=== PATIENT | male | born 1960 | race Caucasian/White ===

== ENCOUNTER 2017-01-16 19:32 | Emergency (ER) | payer BC ==
[2017-01-16 19:44] VITALS: BP 114/75
--- NOTE | 2017-01-16 19:57 | UC ---
Skin Complaint HPI - History of Current Complaint Chief Complaint: UCSkin Time Seen by Provider: 01/16/17 19:46 Stated Complaint: TICK - Allergy/Home Medications Allergies/Adverse Reactions: Allergies Allergy/AdvReac Type Severity Reaction Status Date / Time Erythromycin AdvReac Mild Diarrhea Verified 01/16/17 19:44 Review of Systems Skin: Other - tick bite Is Patient Immunocompromised?: No All Other Systems Reviewed And Are Negative: Yes PMH/Surg Hx/FS Hx/Imm Hx Endocrine History: Dyslipidemia GI/ History: Gastroesophageal Reflux Neurological History: Other Other Neurological History: Meniere's disease - Surgical History Surgical History: None - Family History Known Family History: Positive: Cardiac Disease Negative: Hypertension, Diabetes - Social History Occupation: Employed Full-time Lives: With Family Alcohol Use: Daily Alcohol Amount: wine Substance Use Type: None Smoking Status (MU): Never Smoked Tobacco Physical Exam Triage Information Reviewed: Yes Appearance: Well-Appearing, No Pain Distress, Well-Nourished Vital Signs: Initial Vital Signs Temp 97.4 F 01/16/17 19:39 Pulse 63 01/16/17 19:39 Resp 14 01/16/17 19:39 BP 114/75 01/16/17 19:39 Vital Signs Reviewed: Yes Eyes: Positive: Conjunctiva Clear Neck exam: Normal Respiratory Exam: Normal Cardiovascular Exam: Normal Musculoskeletal Exam: Normal Neurological Exam: Normal Psychological Exam: Normal Skin: Positive: Other - tick bite posterior right shoulder. Course/Dx - Differential Diagnoses - Skin Complaint Differential Diagnoses: Cellulitis, Contact Dermatitis, Tick Born Illness - Diagnoses Provider Diagnoses: Tick bite right posterior shoulder Discharge - Discharge Plan Condition: Stable Disposition: HOME Patient Education Materials: Tick Bite (ED) Additional Instructions: Non-engorged tick that has been embedded for less than 24 hours does not require antibiotics.
== END 2017-01-16 20:08 | disposition home or self-care (01) ==
LOC: UCCORT 19:32
DX: S40.261A Insect bite (nonvenomous) of right shoulder, initial encounter (principal); W57.XXXA Bitten or stung by nonvenomous insect and other nonvenomous arthropods, initial encounter; Z88.1 Allergy status to other antibiotic agents
CPT/HCPCS: 99211; G0463

== ENCOUNTER 2017-05-30 16:38 | Emergency (ER) | payer BC ==
[2017-05-30 18:33] VITALS: BP 106/84
--- NOTE | 2017-05-30 18:55 | RAD ---
INDICATION: Fever. COMPARISON: There are no prior studies available for comparison. TECHNIQUE: Dual-energy PA and lateral views of the chest were obtained. FINDINGS: The heart is within normal limits in size. Mediastinal and hilar contours appear within normal limits. The lungs are clear. No pleural effusion is present. IMPRESSION: NO EVIDENCE FOR ACTIVE CARDIOPULMONARY DISEASE.
--- NOTE | 2017-05-30 19:03 | UC ---
HPI Febrile Illness - HPI Summary HPI Summary: 56 yo male with the onset yesterday of fever/chills/MACIEL and myalgias nausea no vomiting 2 weeks ago was quite ill with cough and fever no cough now no runny nose no sore throat - History of Current Complaint Chief Complaint: UCGeneralIllness Time Seen by Provider: 05/30/17 18:24 Hx Obtained From: Patient Timing: Constant Initial Severity: Moderate Current Severity: Mild Pain Intensity: 4 Pain Scale Used: 0-10 Numeric Alleviating Factors: OTC Medicine Associated Signs and Symptoms: Chills, Headache, Nausea Related History: Recent Tick Bite - tick bite about 4 mos ago - Allergy/Home Medications Allergies/Adverse Reactions: Allergies Allergy/AdvReac Type Severity Reaction Status Date / Time erythromycin base AdvReac Diarrhea Verified 05/30/17 18:18 Home Medications: Home Medications Acetaminophen [Tylenol Extra Strength] 1,000 mg PO DAILY PRN 05/30/17 [History Confirmed 05/30/17] Dexlansoprazole (NF) [Dexilant (NF)] 30 mg PO DAILY 05/30/17 [History Confirmed 05/30/17] Multivitamin [Daily Multiple Vitamins] 1 tab PO DAILY 05/30/17 [History Confirmed 05/30/17] hydroCHLOROthiazide [Hydrochlorothiazide] 0.5 tab PO DAILY 05/30/17 [History Confirmed 05/30/17] PMH/Surg Hx/FS Hx/Imm Hx Previously Healthy: Yes - Surgical History Surgical History: None - Family History Known Family History: Positive: Cardiac Disease Negative: Hypertension, Diabetes - Social History Alcohol Use: Occasionally Alcohol Amount: wine Substance Use Type: None Smoking Status (MU): Former Smoker When Did the Patient Quit Smoking/Using Tobacco: 33 YRS AGO Review of Systems Constitutional: Fever, Chills, Fatigue Skin: Negative Eyes: Negative ENT: Negative Respiratory: Negative Cardiovascular: Negative Gastrointestinal: Negative Genitourinary: Negative Motor: Negative Neurovascular: Negative Musculoskeletal: Myalgia Neurological: Headache Psychological: Negative Is Patient Immunocompromised?: No All Other Systems Reviewed And Are Negative: Yes Physical Exam Triage Information Reviewed: Yes Appearance: Well-Appearing, No Pain Distress, Well-Nourished Vital Signs: Initial Vital Signs Temp 98.1 F 05/30/17 18:24 Pulse 79 05/30/17 18:24 Resp 16 05/30/17 18:24 BP 106/84 03/12/18 18:24 Pulse Ox 96 05/30/17 18:24 Vital Signs Reviewed: Yes Eyes: Positive: Conjunctiva Clear ENT: Positive: Hearing grossly normal, Pharynx normal, TMs normal, Uvula midline. Negative: Nasal congestion, Nasal drainage, Tonsillar swelling, Tonsillar exudate, Trismus, Muffled voice, Hoarse voice, Dental tenderness, Sinus tenderness Dental Exam: Normal Neck: Positive: Supple, Nontender, No Lymphadenopathy Respiratory: Positive: Lungs clear, Normal breath sounds, No respiratory distress, No accessory muscle use Cardiovascular: Positive: RRR, No Murmur. Negative: Tachycardia, Bradycardia Abdomen Description: Positive: Nontender, No Organomegaly, Soft. Negative: Bruit, CVA Tenderness (R), CVA Tenderness (L) Bowel Sounds: Positive: Present Musculoskeletal: Positive: ROM Intact, No Edema Neurological: Positive: Alert, Muscle Tone Normal Psychological Exam: Normal Skin Exam: Normal Diagnostics - Laboratory Diagnostic Studies Completed/Ordered: influenza (-) - Radiology No standard instances Xray Interpretation: No Acute Changes Radiology Interpretation Completed By: Radiologist - cxr Course/Dx - Diagnoses Clinic Provider Diagnoses: Febrile illness of uncertain cause. suspect viral syndrome. r/o Lyme disease Discharge - Discharge Plan Condition: Stable Disposition: HOME Patient Education Materials: Viral Syndrome (ED) Referrals: Monika Redmond MD [Primary Care Provider] - 4 Days (if not better ) Additional Instructions: a blood test is pending for Lyme disease and a blood count RECHECK FOR NEW OR WORSENING SYMPTOMS rest fluids tylenol or advil
[2017-05-31 11:03] LABS: ABS Basophils 0 10^3/ul (0-0.2); ABS Eosinophils 0 10^3/ul (0-0.6); ABS Lymphocytes 0.8 10^3/ul (1.0-4.8); ABS Monocytes 0.3 10^3/ul (0-0.8); ABS Neutrophils 5.1 10^3/ul (1.5-7.7); ABS Nucleated RBC 0 10^3/ul; Eosinophil % 0.8 % (0-6); Hematocrit 44 % (42-52); Hemoglobin 15.2 g/dl (14.0-18.0); Lymphocyte % 12.5 % (25-47); Mean Corpuscular HGB Conc 35 g/dl (31-36); Mean Corpuscular Hemoglobin 30 pg (27-31); Mean Corpuscular Volume 87 fL (80-94); Mean Platelet Volume 8 um3 (7.4-10.4); Nucleated Red Blood Cells % 0.1; Platelet Count 164 10^3/ul (150-450); Red Blood Count 5.02 10^6/ul (4.0-5.4); Red Cell Distribution Width 14 % (10.5-15); White Blood Count 6.3 10^3/ul (3.5-10.8)
== END 2017-05-30 19:35 | disposition home or self-care (01) ==
LOC: UCCORT 16:38
DX: R50.9 Fever, unspecified (principal); R51 Headache; M79.1 Myalgia; R11.0 Nausea; R53.83 Other fatigue; Z88.1 Allergy status to other antibiotic agents; Z87.891 Personal history of nicotine dependence
CPT/HCPCS: 36415; 71046; 85025; 86618; 87502; 99211; G0463

== ENCOUNTER 2018-01-03 13:31 | Emergency (ER) | payer BC ==
--- OUTSIDE RECORDS SUMMARY | 2018-01-03 13:51 | XMS REPORT ---
:1960 External Reference #:[id number] Author Organization [facility] 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 Neck soft tissue US WNL July 2015. Abdominal US 2014. TSH WNL Apr 2016 Onset: 11/18/2014 Hyperlipidemia Alla Farooq PA-C Active Note: Oct 2015 LDL 113 HDL 43 chol 172 Trig 82 Onset: 11/18/2014 Gastroesophageal reflux disease Alla Farooq PA-C Active Note: upper endoscopy to D2 Bx 2012 Onset: 11/18/2014 Dysphagia Alla Farooq PA-C Active Note: Esophageal dysmotility syndrome Onset: 11/18/2014 Essential hypertension Alla Farooq PA-C Active Onset: 11/18/2014 Benign prostatic hyperplasia Alla Farooq PA-C Active Onset: 11/18/2014 Meniere's disease Alla Farooq PA-C Active Note: Has been on diuertic Onset: 02/09/2016 Gastroparesis syndrome Alla Farooq PA-C Active Note: Dr. Torres, GI Onset: 06/15/2017 Chest pain Monika Redmond MD Active Onset: 06/15/2017 Allergic rhinitis Monika Redmond MD Active Onset: 01/18/2017 Nonvenomous insect bite of scapular Lexa Murrell M.D. 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 [employer] Work Status Currently Working ETOH Use Uses Alcohol Daily 1-2 glasses of wine per night Smoking Patient denies history of smoking Recreational Drug Use Denies Drug Use Allergies, Adverse Reactions, Alerts Date Description Reaction Status Severity Comments 11/19/2014 Atorvastatin active Severe Myalgias 11/19/2014 Flu Virus Vaccine active Severe PMH- Guillan [place] 11/19/2014 Azithromycin Hives active Mild 11/19/2014 Tetracycline Hives active Mild 12/04/2015 Erythromycin Base active Thinks he got a rash years ago but not sure Medications Medication Date Status Form Strength Qnty SIG Indications Ordering Provider Pravastatin 12/06/ Active Tablets 20mg 90tabs 2 tab by E78.5 Gagen, Sodium 2017 mouth Araseli every day , MS, [employer], CNM Aspirin Low Dose / Active Tablets DR 81mg 1 tab po Unknown 0000 qd Chlorthalidone / Active Tablets 25mg 45tabs 1/2 tab Nyla, 0000 by mouth MD Monika every day Multi For Him / Active Tablets 1 by Unknown 50+ 0000 mouth every day Famotidine / Active Tablets 40mg 1 po Unknown 0000 daily prn Metoclopramide 12/02/ Hx Tablets 5mg 180tab 1 tablet K31.84 PASCUAL Zuleta 2016 - s by mouth Wade Lange 06/15/ qa three DO 2018 times a day prn Acetaminophen / Hx Tablets 500mg 2 by Unknown 0000 - mouth 03/28/ every 4-6 2018 hours as needed pain Dexilant / Hx Capsules 60mg 180cap [address] twice Wade Lange, daily DO 2017 Meclizine HCL / Hx Tablets 25mg one tab Unknown 0000 by mouth four times a day as needed vertigo Multi-Day / Hx Tablets 1 tab po Unknown 0000 qd Dexilant / Hx Capsules 30mg 1 by Unknown 0000 - DR mouth day 2017 Pravastatin / Hx Tablets 10mg 90tabs 1 by Saurav Simms 0000 - mouth Niko, day M.D. 2017 at at bedtime Immunizations CPT Code Status Date Vaccine Lot # [id number] Given 05/26/2011 Tetnus Injection [id number] Given 02/18/2002 Tetnus Injection 29314 Given Unknown Tdap injection [id number] Refused 12/06/2016 Influenza Virus Vaccine Quadrivalent Iiv4 Split Preser Free Id Vital Signs Date Vital Result Comment 12/20/2017 BP Systolic Sitting Left Arm 121 mmHg BP Diastolic Sitting Left Arm 78 mmHg Body Temperature 97.5 F Heart Rate 75 /min Respiratory Rate 20 /min Height 70 inches 5'10" Weight 145.00 lb BMI (Body Mass Index) 20.8 kg/m2 BSA (Body Surface Area) 1.82 m2 [place] body weight in kilograms 75 O2 % BldC Oximetry 96 % 06/15/2017 BP Systolic Sitting Right Arm 109 mmHg BP Diastolic Sitting Right Arm 80 mmHg Heart Rate 72 /min Respiratory Rate 12 /min Height 70 inches 5'10" Weight 143.00 lb BMI (Body Mass Index) 20.5 kg/m2 BSA (Body Surface Area) 1.81 m2 [place] body weight in kilograms 75 01/18/2017 BP Systolic 115 mmHg BP Diastolic 81 mmHg Body Temperature 95.5 F Heart Rate 70 /min Respiratory Rate 14 /min Height 70 inches 5'10" Weight 145.50 lb BMI (Body Mass Index) 20.9 kg/m2 BSA (Body Surface Area) 1.82 m2 [place] body weight in kilograms 75 O2 % BldC Oximetry 99 % 12/06/2016 BP Systolic 132 mmHg BP Diastolic 85 mmHg Heart Rate 76 /min Respiratory Rate 16 /min Height 70 inches 5'10" Weight 145.12 lb BMI (Body Mass Index) 20.8 kg/m2 BSA (Body Surface Area) 1.82 m2 [place] body weight in kilograms 75 O2 % BldC Oximetry 96 % 05/20/2016 BP Systolic 108 mmHg BP Diastolic 76 mmHg Heart Rate 60 /min Height 70 inches 5'10" Weight 148.00 lb BMI (Body Mass Index) 21.2 kg/m2 BSA (Body Surface Area) 1.84 m2 12/03/2015 BP Systolic 111 mmHg BP Diastolic 77 mmHg Heart Rate 60 /min Height 70 inches 5'10" Weight 142.00 lb BMI (Body Mass Index) 20.4 kg/m2 BSA (Body Surface Area) 1.80 m2 11/13/2015 BP Systolic 121 mmHg BP Diastolic 79 mmHg Heart Rate 76 /min Height 70 inches 5'10" Weight 143.00 lb BMI (Body Mass Index) 20.5 kg/m2 BSA (Body Surface Area) 1.81 m2 07/14/2015 BP Systolic 127 mmHg BP Diastolic 85 mmHg Heart Rate 65 /min Height 70 inches 5'10" Weight 145.00 lb BMI (Body Mass Index) 20.8 kg/m2 BSA (Body Surface Area) 1.82 m2 03/11/2015 BP Systolic 123 mmHg BP Diastolic 79 mmHg Heart Rate 65 /min Height 70 inches 5'10" Weight 144.00 lb BMI (Body Mass Index) 20.7 kg/m2 BSA (Body Surface Area) 1.82 m2 11/19/2014 BP Systolic 126 mmHg BP Diastolic 70 mmHg Heart Rate 68 /min Height 70 inches 5'10" Weight 138.00 lb BMI (Body Mass Index) 19.8 kg/m2 BSA (Body Surface Area) 1.78 m2 Results Test Date Test Result H/L Range Note Comprehensive Metabolic Panel 12/12/2017 Glucose 106 mg/dL 74-106 1 BUN 35 mg/dL High 7-18 1 Creatinine 0.9 mg/dL 0.6-1.3 1 Glom Filtration Rate, Estimate >60 mL/min >60 1 If >60 mL/min >60 1, 2 BUN/Creat 38.8 ratio 1 Sodium 144 mmol/L 136-145 1 Potassium 4.0 mmol/L 3.5-5.1 1 Chloride 107 mmol/L 98-107 1 Carbon Dioxide 32 mmol/L 21-32 1 Anion Gap 5 mEq/L Low 8-16 1 Calcium 9.0 mg/dL 8.5-10.1 1 Total Protein 7.5 g/dL 6.4-8.2 1 Albumin 4.1 g/dL 3.4-5.0 1 Globulin 3.4 g/dL 1.9-4.3 1 Alb/Glob 1.2 ratio 1 Bilirubin,Total 0.5 mg/dL 0.2-1.0 1 Sgot/Ast 34 U/L 15-37 1 SGPT/Alt 44 U/L 12-78 1 Alkaline Phosphatase 68 U/L 45-117 1 LDL Cholesterol Profile 12/12/2017 Cholesterol 189 mg/dL <200 1, 3 Triglycerides 76 mg/dL <150 1, 4 HDL Cholesterol 56 mg/dL >40 1, 5 LDL-Cholesterol 118 mg/dL < 100 1, 6 Potassium SerPl-sCnc 06/06/2017 Potassium SerPl-sCnc 4.0 3.5-5.1 RDW RBC Auto 06/06/2017 RDW RBC Auto 43.4 36-51 RDW RBC Auto-Rto 06/06/2017 RDW RBC Auto-Rto 13.7 11.6-15.8 Serum carbon dioxide 06/06/2017 Serum carbon dioxide 32 21-32 measurement measurement Serum or plasma 06/06/2017 Serum or plasma 3.8 3.4-5.0 albumin measurement albumin measurement (mass/volume) (mass/volume) Serum or plasma 06/06/2017 Serum or plasma 86 45-117 alkaline phosphatase alkaline phosphatase measurement ( measurement (enzymatic activity/volume) Serum or plasma 06/06/2017 Serum or plasma 63 High 15-37 aspartate aspartate aminotransferase aminotransferase measure measurement (enzymatic activity/volume) Serum or plasma 06/06/2017 Serum or plasma 9.1 8.5-10.1 calcium measurement calcium measurement (mass/volume) (mass/volume) Serum or plasma 06/06/2017 Serum or plasma 42 >40 cholesterol in HDL cholesterol in HDL measurement (ma measurement (mass/volume) Serum or plasma 06/06/2017 Serum or plasma 89 < 100 cholesterol in LDL cholesterol in LDL measurement by measurement by calculation (mass/volume) Serum or plasma 06/06/2017 Serum or plasma 158 <200 cholesterol cholesterol measurement (mass/volu measurement (mass/volume) Serum or plasma 06/06/2017 Serum or plasma 1.0 0.6-1.3 creatinine measurement creatinine measurement (mass/volum (mass/volume) Serum or plasma 06/06/2017 Serum or plasma 103 74-106 glucose measurement glucose measurement (mass/volume) (mass/volume) Serum or plasma 06/06/2017 Serum or plasma 7.3 6.4-8.2 protein measurement protein measurement (mass/volume) (mass/volume) Serum or plasma total 06/06/2017 Serum or plasma total 0.3 0.2-1.0 bilirubin measurement bilirubin measurement (mass/ (mass/volume) Serum or plasma 06/06/2017 Serum or plasma 136 <150 triglyceride triglyceride measurement (mass/vol measurement (mass/volume) Serum or plasma urea 06/06/2017 Serum or plasma urea 27 High 7-18 nitrogen measurement nitrogen measurement (mass/vo (mass/volume) Serum sodium 06/06/2017 Serum sodium 139 136-145 measurement measurement Unloinc 06/06/2017 Unloinc See Note 7 Alt SerPl-cCnc 06/06/2017 Alt SerPl-cCnc 71 12-78 Laboratory test 06/06/2017 Slide Review (SEE NOTE) 8, 9 finding CBS W/Automated Diff 06/06/2017 White Blood Count 6.8 K/uL 3.4-10.5 8 Red Blood Count 4.63 M/uL 4.20-5.80 8 Hemoglobin 14.1 gm/dL 12.8-17.0 8 Hematocrit 41.0 % 38.0-48.0 8 Mean Cell Volume 88.6 fl 80.0-96.0 8 Mean Corpuscular HGB 30.5 pg 27.0-33.0 8 Mean Corpuscular HGB Conc 34.4 g/dL 31.7-36.0 8 Platelet Count 266 K/uL 155-360 8 Red Cell Distri Width SD 43.4 fl 36-51 8 Red Cell Distri Width %CV 13.7 % 11.6-15.8 8 Mean Platelet Volume 10.2 fL 6.6-10.6 8 Neut% 67.0 % 33.0-73.0 8 Lymph % 21.8 % 20.0-42.0 8 Saline % 6.4 % 0.0-10.0 8 Eo% 4.5 % 0.0-6.6 8 Bas% 0.3 % 0.0-1.1 8 Neut# 4.57 K/uL 1.8-7.0 8 Lymph # 1.49 K/uL 1.0-4.0 8 Saline # 0.44 K/uL 0.0-0.8 8 Eos # 0.31 K/uL 0.0-0.5 8 Baso # 0.02 K/uL 0.0-0.1 8 Comprehensive Metabolic Panel 06/06/2017 Glucose 103 mg/dL 74-106 8 BUN 27 mg/dL High 7-18 8 Creatinine 1.0 mg/dL 0.6-1.3 8 Glom Filtration Rate, Estimate >60 mL/min >60 8 If >60 mL/min >60 8, 10 BUN/Creat 27.0 ratio 8 Sodium 139 mmol/L 136-145 8 Potassium 4.0 mmol/L 3.5-5.1 8 Chloride 103 mmol/L 98-107 8 Carbon Dioxide 32 mmol/L 21-32 8 Anion Gap 4 mEq/L Low 8-16 8 Calcium 9.1 mg/dL 8.5-10.1 8 Total Protein 7.3 g/dL 6.4-8.2 8 Albumin 3.8 g/dL 3.4-5.0 8 Globulin 3.5 g/dL 1.9-4.3 8 Alb/Glob 1.1 ratio 8 Bilirubin,Total 0.3 mg/dL 0.2-1.0 8 Sgot/Ast 63 U/L High 15-37 8 SGPT/Alt 71 U/L 12-78 8 Alkaline Phosphatase 86 U/L 45-117 8 LDL Cholesterol Profile 06/06/2017 Cholesterol 158 mg/dL <200 8, 11 Triglycerides 136 mg/dL <150 8, 12 HDL Cholesterol 42 mg/dL >40 8, 13 LDL-Cholesterol 89 mg/dL < 100 8, 14 Albumin/Glob SerPl 06/06/2017 Albumin/Glob SerPl 1.1 Anion Gap SerPl-sCnc 06/06/2017 Anion Gap SerPl-sCnc 4 Low 8-16 Automated blood 06/06/2017 Automated blood 0.02 0.0-0.1 basophil count basophil count (count/volume) (count/volume) Automated blood 06/06/2017 Automated blood 0.31 0.0-0.5 eosinophil count eosinophil count Automated blood 06/06/2017 Automated blood 41.0 38.0-48.0 hematocrit (volume hematocrit (volume fraction) fraction) Automated blood 06/06/2017 Automated blood 1.49 1.0-4.0 lymphocyte count lymphocyte count (number/volume) (number/volume) Automated blood 06/06/2017 Automated blood 266 155-360 platelet count platelet count Automated blood 06/06/2017 Automated blood 10.2 6.6-10.6 platelet mean volume platelet mean volume measurement measurement Automated erythrocyte 06/06/2017 Automated erythrocyte 30.5 27.0-33.0 mean corpuscular mean corpuscular hemoglobin hemoglobin (mass per erythrocyte) Automated erythrocyte 06/06/2017 Automated erythrocyte 34.4 31.7-36.0 mean corpuscular mean corpuscular hemoglobin hemoglobin concentration measurement (mass/volume) Automated erythrocyte 06/06/2017 Automated erythrocyte 88.6 80.0-96.0 mean corpuscular volume mean corpuscular volume BUN/Creat SerPl 06/06/2017 BUN/Creat SerPl 27.0 Neutrophils/leuk NFr 06/06/2017 Neutrophils/leuk NFr 67.0 33.0-73.0 Bld Auto Bld Auto Neutrophils # Bld Auto 06/06/2017 Neutrophils # Bld Auto 4.57 1.8-7.0 Monocytes/leuk NFr Bld 06/06/2017 Monocytes/leuk NFr Bld 6.4 0.0-10.0 Auto Auto Lymphocytes/leuk NFr 06/06/2017 Lymphocytes/leuk NFr 21.8 20.0-42.0 Bld Auto Bld Auto Globulin Ser Calc-mCnc 06/06/2017 Globulin Ser Calc-mCnc 3.5 1.9-4.3 Eosinophil/leuk NFr Bld 06/06/2017 Eosinophil/leuk NFr Bld 4.5 0.0-6.6 Auto Auto Basophils/leuk NFr Bld 06/06/2017 Basophils/leuk NFr Bld 0.3 0.0-1.1 Auto Auto Blood erythrocytes 06/06/2017 Blood erythrocytes 4.63 4.20-5.80 automated count automated count (number/volume) (number/volume) Blood hemoglobin 06/06/2017 Blood hemoglobin 14.1 12.8-17.0 measurement measurement (mass/volume) (mass/volume) Blood leukocytes 06/06/2017 Blood leukocytes 6.8 3.4-10.5 automated count automated count (number/volume) (number/volume) Blood monocytes 06/06/2017 Blood monocytes 0.44 0.0-0.8 automated count automated count (number/volume) (number/volume) [facility] 06/06[facility]2017 Ch[facility]ide [facility] 103 98-107 CBC Auto Diff 05/30/2017 White Blood Count 6.3 10^3/uL 3.5-10.8 Red Blood Count 5.02 10^6/uL 4.0-5.4 Hemoglobin 15.2 g/dL 14.0-18.0 Hematocrit 44 % 42-52 Mean Corpuscular Volume 87 fL 80-94 Mean Corpuscular Hemoglobin 30 pg 27-31 Mean Corpuscular HGB Conc 35 g/dL 31-36 Red Cell Distribution Width 14 % 10.5-15 Platelet Count 164 10^3/uL 150-450 Mean Platelet Volume 8 um3 7.4-10.4 Abs Neutrophils 5.1 10^3/uL 1.5-7.7 Abs Lymphocytes 0.8 10^3/uL Low 1.0-4.8 Abs Monocytes 0.3 10^3/uL 0-0.8 Abs Eosinophils 0 10^3/uL 0-0.6 Abs Basophils 0 10^3/uL 0-0.2 Abs Nucleated RBC 0 10^3/uL Granulocyte % 80.9 % 38-83 Lymphocyte % 12.5 % Low 25-47 Monocyte % 5.4 % 0-7 Eosinophil % 0.8 % 0-6 Basophil % 0.4 % 0-2 Nucleated Red Blood Cells % 0.1 Laboratory test finding 05/30/2017 Lyme Disease Serology Negative Negative 15 Rapid Influenza A & B 05/30/2017 Influenza A Molecular NEGATIVE Negative 16 Molecular Influenza B Molecular NEGATIVE Negative 230 Ua Routine 04/21/2017 Ua Bilirubin Negative Ua Blood Negative Ua Clarity Clear Ua Color Yellow Ua Glucose Negative Ua Ketones Negative Ua Leuko Negative Ua Nitrite Negative Ua PH 6.5 1 5.0-7.5 Ua Protein Negative Ua Specific [place] <=1.005 1.003-1.030 Ua Urobilinogen 0.2 E.U./dL 0.0-1.0 Laboratory test finding 04/21/2017 Total Psa Only 0.36 ng/mL 0.00-4.00 Comprehensive Metabolic Panel 11/24/2016 Glucose 107 mg/dL High 74-106 17 BUN 23 mg/dL High 7-18 17 Creatinine 0.8 mg/dL 0.6-1.3 17 Glom Filtration Rate, Estimate >60 mL/min >60 17 If >60 mL/min >60 17, 18 BUN/Creat 28.7 ratio 17 Sodium 138 mmol/L 136-145 17 Potassium 4.8 mmol/L 3.5-5.1 17 Chloride 104 mmol/L 98-107 17 Carbon Dioxide 32 mmol/L 21-32 17 Anion Gap 2 mEq/L Low 8-16 17 Calcium 9.1 mg/dL 8.5-10.1 17 Total Protein 7.5 g/dL 6.4-8.2 17 Albumin 3.8 g/dL 3.4-5.0 17 Globulin 3.7 g/dL 1.9-4.3 17 Alb/Glob 1.0 ratio 17 Bilirubin,Total 0.5 mg/dL 0.2-1.0 17 Sgot/Ast 32 U/L 15-37 17 SGPT/Alt 37 U/L 12-78 17 Alkaline Phosphatase 68 U/L 45-117 17 Laboratory test finding 11/24/2016 Magnesium 2.1 mg/dL 1.8-2.4 17 LDL Cholesterol Profile 11/24/2016 Cholesterol 213 mg/dL High <200 17, 19 Triglycerides 86 mg/dL <150 17, 20 HDL Cholesterol 56 mg/dL >40 17, 21 LDL-Cholesterol 140 mg/dL < 100 17, 22 CBS W/Automated Diff 11/24/2016 White Blood Count 5.4 K/uL 3.4-10.5 17 Red Blood Count 4.70 M/uL 4.20-5.80 17 Hemoglobin 14.5 gm/dL 12.8-17.0 17 Hematocrit 42.0 % 38.0-48.0 17 Mean Cell Volume 89.4 fl 80.0-96.0 17 Mean Corpuscular HGB 30.9 pg 27.0-33.0 17 Mean Corpuscular HGB Conc 34.5 g/dL 31.7-36.0 17 Platelet Count 159 K/uL 150-400 17 Red Cell Distri Width SD 44.6 fl 36-51 17 Red Cell Distri Width %CV 14.0 % 11.6-15.8 17 Mean Platelet Volume 9.7 fL 6.6-10.6 17 Neut% 65.9 % 33.0-73.0 17 Lymph % 21.5 % 20.0-42.0 17 Saline % 7.4 % 0.0-10.0 17 Eo% 4.8 % 0.0-6.6 17 Bas% 0.4 % 0.0-1.1 17 Neut# 3.59 K/uL 1.8-7.0 17 Lymph # 1.17 K/uL 1.0-4.0 17 Saline # 0.40 K/uL 0.0-0.8 17 Eos # 0.26 K/uL 0.0-0.5 17 Baso # 0.02 K/uL 0.0-0.1 17 Vitamin B12 And Folate 11/24/2016 Vitamin B12 575 pg/mL 193-986 17 Folic Acid 20.8 ng/mL High 3.1-17.5 17 Laboratory test finding 11/24/2016 Ferritin 318 ng/mL 26-388 17 Laboratory test finding 05/13/2016 Magnesium 2.4 mg/dL 1.8-2.4 23 Thyroid Stim Hormone 2.83 uIU/mL 0.30-4.20 23 Comprehensive Metabolic Panel 05/13/2016 Glucose 103 mg/dL 74-106 23 BUN 25 mg/dL High 7-18 23 Creatinine 0.9 mg/dL 0.6-1.3 23 Glom Filtration Rate, Estimate >60 mL/min >60 23 If >60 mL/min >60 23, 24 BUN/Creat 27.7 ratio 23 Sodium 141 mmol/L 136-145 23 Potassium 4.1 mmol/L 3.5-5.1 23 Chloride 103 mmol/L 98-107 23 Carbon Dioxide 33 mmol/L High 21-32 23 Anion Gap 5 mEq/L Low 8-16 23 Calcium 8.8 mg/dL 8.5-10.1 23 Total Protein 7.1 g/dL 6.4-8.2 23 Albumin 4.0 g/dL 3.4-5.0 23 Globulin 3.1 g/dL 1.9-4.3 23 Alb/Glob 1.3 ratio 23 Bilirubin,Total 0.6 mg/dL 0.2-1.0 23 Sgot/Ast 27 U/L 15-37 23 SGPT/Alt 36 U/L 12-78 23 Alkaline Phosphatase 65 U/L 45-117 23 LDL Cholesterol Profile 11/10/2015 Cholesterol 172 mg/dL <200 25, 26 Triglycerides 82 mg/dL <150 25, 27 HDL Cholesterol 43 mg/dL >40 25, 28 LDL-Cholesterol 113 mg/dL < 100 25, 29 @[facility] Pat Id: [id number] 25 @[facility] Req #: [id number] 25 Is Patient Fasting? Fasting 25 Magnesium 11/10/2015 Magnesium 2.0 mg/dL 1.8-2.4 25 @[facility] Pat Id: [id number] 25 @[facility] Req #: [id number] 25 Is Patient Fasting? Fasting 25 Comprehensive Metabolic Panel 11/10/2015 Glucose 106 mg/dL 74-106 25 BUN 29 mg/dL High 7-18 25 Creatinine 0.9 mg/dL 0.6-1.3 25 Glom Filtration Rate, Estimate >60 mL/min >60 25 If >60 mL/min >60 25, 30 BUN/Creat 32.2 ratio 25 Sodium 141 mmol/L 136-145 25 Potassium 4.1 mmol/L 3.5-5.1 25 Chloride 106 mmol/L 98-107 25 Carbon Dioxide 31 mmol/L 21-32 25 Anion Gap 4 mEq/L Low 8-16 25 Calcium 9.0 mg/dL 8.5-10.1 25 Total Protein 7.2 g/dL 6.4-8.2 25 Albumin 3.8 g/dL 3.4-5.0 25 Globulin 3.4 g/dL 1.9-4.3 25 Alb/Glob 1.1 ratio 25 Bilirubin,Total 0.4 mg/dL 0.2-1.0 25 Sgot/Ast 26 U/L 15-37 25 SGPT/Alt 40 U/L 12-78 25 Alkaline Phosphatase 72 U/L 45-117 25 @[facility] Pat Id: [id number] 25 @[facility] Req #: [id number] 25 Is Patient Fasting? Fasting 25 CMP Panel (14 Test) 07/08/2015 Glucose 106 mg/dL 74-106 BUN 32 mg/dL High 7-18 Creatinine 1.0 mg/dL 0.6-1.3 Glom Filtration Rate, Estimate >60 mL/min >60 If >60 mL/min >60 31 BUN/Creat 32.0 ratio Sodium 141 mmol/L 136-145 Potassium 4.0 mmol/L 3.5-5.1 Chloride 105 mmol/L 98-107 Carbon Dioxide 32 mmol/L 21-32 Anion Gap 4 mEq/L Low 8-16 Calcium 9.6 mg/dL 8.5-10.1 Total Protein 7.7 g/dL 6.4-8.2 Albumin 4.2 g/dL 3.4-5.0 Globulin 3.5 g/dL 1.9-4.3 Alb/Glob 1.2 ratio Bilirubin,Total 0.6 mg/dL 0.2-1.0 Sgot/Ast 34 U/L 15-37 SGPT/Alt 41 U/L 12-78 Alkaline Phosphatase 74 U/L 45-117 CMP Panel (14 Test) 03/03/2015 Glucose 103 mg/dL 74-106 BUN 31 mg/dL High 7-18 Creatinine 0.9 mg/dL 0.6-1.3 Glom Filtration Rate, Estimate >60 mL/min >60 If >60 mL/min >60 32 BUN/Creat 34.4 ratio Sodium 142 mmol/L 136-145 Potassium 3.9 mmol/L 3.5-5.1 Chloride 105 mmol/L 98-107 Carbon Dioxide 31 mmol/L 21-32 Anion Gap 6 mEq/L Low 8-16 Calcium 9.3 mg/dL 8.5-10.1 Total Protein 7.3 g/dL 6.4-8.2 Albumin 4.3 g/dL 3.4-5.0 Globulin 3.0 g/dL 1.9-4.3 Alb/Glob 1.4 ratio Bilirubin,Total 0.6 mg/dL 0.2-1.0 Sgot/Ast 26 U/L 15-37 SGPT/Alt 33 U/L 12-78 Alkaline Phosphatase 86 U/L 45-117 Comprehensive Metabolic Panel 11/12/2014 Glucose 103 mg/dL 74-106 BUN 30 mg/dL High 7-18 Creatinine 1.0 mg/dL 0.6-1.3 Glom Filtration Rate, Estimate >60 mL/min >60 If >60 mL/min >60 33 BUN/Creat 30.0 ratio Sodium 136 mmol/L 136-145 Potassium 4.1 mmol/L 3.5-5.1 Chloride 100 mmol/L 98-107 Carbon Dioxide 31 mmol/L 21-32 Anion Gap 5 mEq/L Low 8-16 Calcium 9.5 mg/dL 8.5-10.1 Total Protein 8.3 g/dL High 6.4-8.2 Albumin 4.4 g/dL 3.4-5.0 Globulin 3.9 g/dL 1.9-4.3 Alb/Glob 1.1 ratio Bilirubin,Total 0.7 mg/dL 0.2-1.0 Sgot/Ast 33 U/L 15-37 SGPT/Alt 45 U/L 12-78 Alkaline Phosphatase 75 U/L 45-117 LDL Cholesterol Profile 11/12/2014 Cholesterol 195 mg/dL < 200 34 Triglycerides 76 mg/dL < 150 35 HDL Cholesterol 49 mg/dL > 40 36 LDL-Cholesterol 131 mg/dL < 100 37 1 E78.5 2 Note: Persistent reduction for 3 months or more in an eGFR <60 mL/min/1.73 m2 defines CKD. Patients with eGFR values >/=60 mL/min/1.73 m2 may also have CKD if evidence of persistent proteinuria is present. The original MDRD equation for estimated GFR is not valid for patients less than 18 years of age. Additional information may be found at www.kdoqi.org. 3 Reference Guidelines*: Desirable: ........... < 200 mg/dL Borderline High: ..... 200-239 mg/dL High: ................ >=240 mg/dL * The National Cholesterol Education Program (NCEP) 4 Reference Guidelines*: Normal: ............. < 150 mg/dL Borderline High: .... 150-199 mg/dL High: ............... 200-499 mg/dL Very High: .......... > 500 mg/dL * Source: National Cholesterol Education Program (NCEP) 5 Reference Guidelines*: Low HDL: ..... < 40 mg/dL Normal: ..... 40-60 mg/dL Desirable: ... > 60 mg/dL *The National Cholesterol Education Program(NCEP) 6 Reference Guidelines*: Optimal:........... <100 mg/dL Near Optimal....... 100-129 mg/dL Borderline High.... 130-159 mg/dL High............... 160-189 mg/dL Very High.......... >=190 mg/dL * Source: National Cholesterol Education Program (NCEP) 7 Instrument flagged sample for slide review. Less than 10% Bands seen, no other immature WBC's seen. RBC morphology essentially normal. Platelet estimate= Normal 8 I10 E78.5 G25.81 9 Instrument flagged sample for slide review. Less than 10% Bands seen, no other immature WBC's seen. RBC morphology essentially normal. Platelet estimate=NORMAL 10 Note: Persistent reduction for 3 months or more in an eGFR <60 mL/min/1.73 m2 defines CKD. Patients with eGFR values >/=60 mL/min/1.73 m2 may also have CKD if evidence of persistent proteinuria is present. The original MDRD equation for estimated GFR is not valid for patients less than 18 years of age. Additional information may be found at www.kdoqi.org. 11 Reference Guidelines*: Desirable: ........... < 200 mg/dL Borderline High: ..... 200-239 mg/dL High: ................ >=240 mg/dL * The National Cholesterol Education Program (NCEP) 12 Reference Guidelines*: Normal: ............. < 150 mg/dL Borderline High: .... 150-199 mg/dL High: ............... 200-499 mg/dL Very High: .......... > 500 mg/dL * Source: National Cholesterol Education Program (NCEP) 13 Reference Guidelines*: Low HDL: ..... < 40 mg/dL Normal: ..... 40-60 mg/dL Desirable: ... > 60 mg/dL *The National Cholesterol Education Program(NCEP) 14 Reference Guidelines*: Optimal:........... <100 mg/dL Near Optimal....... 100-129 mg/dL Borderline High.... 130-159 mg/dL High............... 160-189 mg/dL Very High.......... >=190 mg/dL * Source: National Cholesterol Education Program (NCEP) 15 Serologic response to B. burgdorferi infection is not detected, but cannot rule out early infection during which low or undetectable antibody levels to B. burgdorferi may be present. If clinically indicated, a new serum specimen should be submitted in 7-14 days. Test Performed by: [facility] [address], [place] [address] 16 Health Education Director: [id number] E78.5 R63.4 I10 K31.84 G25.81 K21.9 18 Note: Persistent reduction for 3 months or more in an eGFR <60 mL/min/1.73 m2 defines CKD. Patients with eGFR values >/=60 mL/min/1.73 m2 may also have CKD if evidence of persistent proteinuria is present. The original MDRD equation for estimated GFR is not valid for patients less than 18 years of age. Additional information may be found at [email or web address]. 19 Reference Guidelines*: Desirable: ........... < 200 mg/dL Borderline High: ..... 200-239 mg/dL High: ................ >=240 mg/dL * The National Cholesterol Education Program (NCEP) 20 Reference Guidelines*: Normal: ............. < 150 mg/dL Borderline High: .... 150-199 mg/dL High: ............... 200-499 mg/dL Very High: .......... > 500 mg/dL * Source: National Cholesterol Education Program (NCEP) 21 Reference Guidelines*: Low HDL: ..... < 40 mg/dL Normal: ..... 40-60 mg/dL Desirable: ... > 60 mg/dL *The National Cholesterol Education Program(NCEP) 22 Reference Guidelines*: Optimal:........... <100 mg/dL Near Optimal....... 100-129 mg/dL Borderline High.... 130-159 mg/dL High............... 160-189 mg/dL Very High.......... >=190 mg/dL * Source: National Cholesterol Education Program (NCEP) 23 K21.9 E78.5 R10.9 R63.4 K31.84 24 Note: Persistent reduction for 3 months or more in an eGFR <60 mL/min/1.73 m2 defines CKD. Patients with eGFR values >/=60 mL/min/1.73 m2 may also have CKD if evidence of persistent proteinuria is present. The original MDRD equation for estimated GFR is not valid for patients less than 18 years of age. Additional information may be found at [email or web address]. 25 I10 E78.5 K21.9 26 Reference Guidelines*: Desirable: ........... < 200 mg/dL Borderline High: ..... 200-239 mg/dL High: ................ >=240 mg/dL * The National Cholesterol Education Program (NCEP) 27 Reference Guidelines*: Normal: ............. < 150 mg/dL Borderline High: .... 150-199 mg/dL High: ............... 200-499 mg/dL Very High: .......... > 500 mg/dL * Source: National Cholesterol Education Program (NCEP) 28 Reference Guidelines*: Low HDL: ..... < 40 mg/dL Normal: ..... 40-60 mg/dL Desirable: ... > 60 mg/dL *The National Cholesterol Education Program(NCEP) 29 Reference Guidelines*: Optimal:........... <100 mg/dL Near Optimal....... 100-129 mg/dL Borderline High.... 130-159 mg/dL High............... 160-189 mg/dL Very High.......... >=190 mg/dL * Source: National Cholesterol Education Program (NCEP) 30 Note: Persistent reduction for 3 months or more in an eGFR <60 mL/min/1.73 m2 defines CKD. Patients with eGFR values >/=60 mL/min/1.73 m2 may also have CKD if evidence of persistent proteinuria is present. The original MDRD equation for estimated GFR is not valid for patients less than 18 years of age. Additional information may be found at [email or web address]. 31 Note: Persistent reduction for 3 months or more in an eGFR <60 mL/min/1.73 m2 defines CKD. Patients with eGFR values >/=60 mL/min/1.73 m2 may also have CKD if evidence of persistent proteinuria is present. The original MDRD equation for estimated GFR is not valid for patients less than 18 years of age. Additional information may be found at [email or web address]. 32 Note: Persistent reduction for 3 months or more in an eGFR <60 mL/min/1.73 m2 defines CKD. Patients with eGFR values >/=60 mL/min/1.73 m2 may also have CKD if evidence of persistent proteinuria is present. The original MDRD equation for estimated GFR is not valid for patients less than 18 years of age. Additional information may be found at [email or web address]. 33 Note: Persistent reduction for 3 months or more in an eGFR <60 mL/min/1.73 m2 defines CKD. Patients with eGFR values >/=60 mL/min/1.73 m2 may also have CKD if evidence of persistent proteinuria is present. The original MDRD equation for estimated GFR is not valid for patients less than 18 years of age. Additional information may be found at [email or web address]. 34 Reference Guidelines*: Desirable: ........... < 200 mg/dL Borderline High: ..... 200-239 mg/dL High: ................ >=240 mg/dL * The National Cholesterol Education Program (NCEP) 35 Reference Guidelines*: Normal: ............. < 150 mg/dL Borderline High: .... 150-199 mg/dL High: ............... 200-499 mg/dL Very High: .......... > 500 mg/dL * Source: National Cholesterol Education Program (NCEP) 36 Reference Guidelines*: Low HDL: ..... < 40 mg/dL Normal: ..... 40-60 mg/dL Desirable: ... > 60 mg/dL *The National Cholesterol Education Program(NCEP) 37 Reference Guidelines*: Optimal:........... <100 mg/dL Near Optimal....... 100-129 mg/dL Borderline High.... 130-159 mg/dL High............... 160-189 mg/dL Very High.......... >=190 mg/dL * Source: National Cholesterol Education Program (NCEP) Procedures Date CPT Code Description Status 06/22/2017 43550 Stress Test Interpre And Report Only Completed 06/22/2017 44006 Stress Test Physician Super Only Completed 04/14/2016 Colonoscopy Completed 09/04/2007 89481 Dil. Of Esoph. By Sound Or Bougie Completed 09/04/2007 64662 EGD Completed 11/30/2006 35092 Acoustic Reflex Testing Completed 11/30/2006 38469 Tympanometry Completed 11/30/2006 60969 Audiometry, Comprehensive Completed Encounters Type Date Location Provider CPT E/M Dx Office Visit 06/15/2017 2:40p [place] [address] E78.5 R07.9 K21.9 H81.03 N40.0 J30.9 Office Visit 01/18/2017 11:30a Primary Care Lexa Murrell, 54235 S40.261A Office M.D. Office Visit 12/06/2016 2:00p Primary Care Alla Farooq, 37341 I10 Office PA-C E78.5 K31.84 K21.9 M54.2 H81.03 G25.81 Office Visit 05/20/2016 1:30p Primary Care Office Alla Farooq, 02218 I10 PA-C E78.5 K31.84 K21.9 M54.2 H81.03 G25.81 Office Visit 12/03/2015 2:30p Primary Care Office Alla Farooq, 58546 K31.84 PA-C K21.9 I10 E78.5 M54.2 Office Visit 11/13/2015 1:30p Primary Care Office Alla Farooq, 78348 K21.9 PA-C I10 E78.5 R10.9 M54.2 R59.0 Office Visit 07/14/2015 2:00p Primary Care Office OseasAlla, 37819 I10 VERÓNICA-C E78.5 K21.9 R10.9 M54.2 K22.4 R59.0 Office Visit 03/11/2015 2:30p Alla Juarez PA-C 40421 I10 R10.9 E78.5 R13.10 M54.2 K21.9 Office Visit 11/19/2014 1:30p Alla Juarez PA-C 98592 401.9 789.00 272.4 787.20 723.1 Office Visit 05/22/2008 3:00p [place] [address] 607.89 401.1 Office Visit 03/01/2008 1:30[place] [address] 780.4 401.1 Office Visit 08/30/2007 4:00p [place] [address] 401.1 787.20 571.41 Office Visit 04/12/2007 2:00p [place] [address] 272.2 401.1 Office Visit 10/11/2006 3:00p [place] [address] 530.81 Plan of Care Future Appointment(s):06/23/2018 8:15 am - Income Auditor at [facility] [id number] 2:20 pm - Monika Redmond MD at [facility] Rizyoe9212/20/2017 - Monika Redmond MDE78.5 Hyperlipidemia, unspecifiedNew Labs:Comprehensive Metabolic PanelLDL Cholesterol ProfileComments:-LDL 140->89->118-Continue pravastatin, but increase to 40mg -Check LFTs and lipid panel againprior to next visit -ASCVD risk score 5.3% and advise increasing cholesterol med to moderate doseH81.03 Meniere's disease, bilateralNew Labs:CBC W/Automated DiffVitamin D,25-HydroxyComments:-well controlled-no recurrence of sx -on chlorthalidone 1/2 tab [id number] Benign prostatic hyperplasia without lower urinry tract sympComments:-PSA <4-Continue followup with sxrhrotI44.9 Gastro- esophageal reflux disease without esophagitisComments:-Continue Dexilant, pepcid PRN-Had EGD in 2016 and colonoscopy one year ago with Dr. Torres - Continuefollowup with GI as [id number] CervicalgiaNew Xrays:Spine, Cervical Complete, Oblique, FlexionComments:-cervical spine Xray-PTReferral: Trudy Alves, [facility], Design Engineering Technician/Clinic/CTRM54.5 Low back painNew Xrays:Spine, Lumbosacral CompleteComments:-Lumbar spine Xray-PT- will image further and refer if no improvementReferral:Trudy Alves, [facility], Design Engineering Technician/Clinic/CTRAllFollow up:f/u in 6 months for PE fasting blood work prior
[2018-01-03 13:55] VITALS: BP 126/80
--- NOTE | 2018-01-03 14:09 | UC ---
Throat Pain/Nasal Jamir HPI - HPI Summary HPI Summary: sore throat x 4 days + fever, chills, body aches, + pnd , no cough , + nasal congestion - History of Current Complaint Chief Complaint: UCGeneralIllness Stated Complaint: THROAT,FEVER Time Seen by Provider: 01/03/18 13:58 Hx Obtained From: Patient Onset/Duration: Gradual Onset, Lasting Days - 4, Still Present Severity: Moderate Pain Intensity: 6 Cough: None Associated Signs & Symptoms: Positive: Nasal Discharge, Fever. Negative: Dysphagia, FB Sensation, Drooling, Wheezing, Hoarseness, Sinus Discomfort, Vomiting, Rash - Allergies/Home Medications Allergies/Adverse Reactions: Allergies Allergy/AdvReac Type Severity Reaction Status Date / Time erythromycin base AdvReac Diarrhea Verified 01/03/18 13:51 Home Medications: Home Medications Aspirin 81 mg CHEW TAB* [Aspirin Low Dose TAB*] 81 mg PO DAILY 01/03/18 [ History Confirmed 01/03/18] PMH/Surg Hx/FS Hx/Imm Hx - Additional Past Medical History Additional PMH: hypercholesterol, meniers disease, acid reflux, FIDENCIO BARRE DISEASE. FX PELVIS. [ End ] - Surgical History Surgical History: None - Family History Known Family History: Positive: Cardiac Disease Negative: Hypertension, Diabetes - Social History Alcohol Use: Occasionally Alcohol Amount: wine Substance Use Type: None Smoking Status (MU): Former Smoker When Did the Patient Quit Smoking/Using Tobacco: 33 YRS AGO Review of Systems Constitutional: Fever, Chills, Fatigue Skin: Negative Eyes: Negative ENT: Sore Throat, Nasal Discharge Respiratory: Negative Cardiovascular: Negative Gastrointestinal: Negative Is Patient Immunocompromised?: No All Other Systems Reviewed And Are Negative: Yes Physical Exam Triage Information Reviewed: Yes Appearance: Well-Appearing, No Pain Distress, Well-Nourished Vital Signs: Initial Vital Signs Temp 98.1 F 01/03/18 13:49 Pulse 88 01/03/18 13:49 Resp 16 01/03/18 13:49 BP 126/80 01/03/18 13:49 Pulse Ox 99 01/03/18 13:49 Vital Signs Reviewed: Yes Eye Exam: Normal Eyes: Positive: Conjunctiva Clear ENT: Positive: Normal ENT inspection, Hearing grossly normal, Pharyngeal erythema, Nasal congestion Dental Exam: Normal Neck exam: Normal Neck: Positive: Supple, Nontender, No Lymphadenopathy Respiratory: Positive: Chest non-tender, Lungs clear, Normal breath sounds Cardiovascular: Positive: RRR, No Murmur, Pulses Normal Skin Exam: Normal Throat Pain/Nasal Course/Dx - Differential Dx/Diagnosis Provider Diagnoses: pharyngitis Discharge - Sign-Out/Discharge Documenting (check all that apply): Patient Departure All imaging exams completed and their final reports reviewed: No Studies - Discharge Plan Condition: Stable Disposition: HOME Patient Education Materials: Pharyngitis (ED) Referrals: Monika Redmond MD [Primary Care Provider] - If Needed - Billing Disposition and Condition Condition: STABLE Disposition: Home
== END 2018-01-03 14:13 | disposition home or self-care (01) ==
LOC: UCCORT 13:31
DX: J02.9 Acute pharyngitis, unspecified (principal); G61.0 Guillain-Barre syndrome; H81.09 Meniere's disease, unspecified ear; Z87.891 Personal history of nicotine dependence; Z88.1 Allergy status to other antibiotic agents; Z79.82 Long term (current) use of aspirin
CPT/HCPCS: 99211; G0463